=== PATIENT | male | born 1980 | race Caucasian/White ===

== ENCOUNTER → 2017-06-08 | Emergency (ER) | payer OTHER ==
[~2017-06-08] VITALS: Ht 172.7 cm; Wt 127.0 kg
== END | disposition home or self-care (01) ==
LOC: ER 18:33
DX: K52.9 Noninfective gastroenteritis and colitis, unspecified (principal)

== ENCOUNTER 2018-12-02 06:00 | Day surgery (SDC) | payer OTHER ==
[~2018-12-02 06:00] MED LIST: 5-HTP100 MG; BENADRYL25 MG; CBD; CLONAZEPAM0.5 MG; MELATONIN10 MG; ZEGERID 40 MG1 EACH; [UNRECOGNIZED DRUG - CODE]
[2018-12-02] MEDS ORDERED: PERCOCET 5-3251 EACH PO (08:57)
[2018-12-02] MEDS ORDERED: COLACE100 MG PO (08:57)
== END 2018-12-02 16:40 | disposition home or self-care (01) ==
LOC: CIR.AMB 06:00
DX: K60.3 Anal fistula (principal)

== ENCOUNTER 2018-12-08 14:00 | Emergency (ER) | payer OTHER ==
[~2018-12-08] VITALS: Ht 172.7 cm; Wt 109.3 kg
[~2018-12-08 14:00] MED LIST changes: +COLACE100 MG PO; +PERCOCET 5-3251 EACH PO
[2018-12-08] MEDS ORDERED: CLONAZEPAM0.5 MG (14:09)
== END 2018-12-09 08:10 | disposition home or self-care (01) ==
LOC: ER 14:00
DX: R60.0 Localized edema (principal)

== ENCOUNTER → 2018-12-12 | Outpatient (CLI) | payer OTHER | END | disposition home or self-care (01) | LOC: LAB 20:06 | DX: K61.2 Anorectal abscess (principal) ==

== ENCOUNTER → 2020-10-11 | Day surgery (SDC) | payer OTHER ==
[~2020-10-11] MED LIST changes: +GABAPENTIN100 M2 PO; +LEXAPRO5 MG PO; +TRAZODONE HCL150 MG PO
== END | disposition home or self-care (01) ==
LOC: ADM 10-09 09:15 → CIR.AMB 08:02
PROVIDERS: ATTEND Surgery
DX: K60.3 Anal fistula (principal); Z20.822 Contact with and (suspected) exposure to COVID-19

== ENCOUNTER 2020-12-20 07:26 | Emergency (ER) | payer OTHER ==
[~2020-12-20] VITALS: Ht 172.7 cm; Wt 121.6 kg
== END 2020-12-20 13:47 | disposition home or self-care (01) ==
LOC: ER 07:26
DX: K62.5 Hemorrhage of anus and rectum (principal); G89.18 Other acute postprocedural pain; Z11.52 Encounter for screening for COVID-19

== ENCOUNTER 2021-08-01 05:56 | Day surgery (SDC) | payer OTHER ==
[~2021-08-01] VITALS: Ht 172.7 cm; Wt 131.5 kg
[~2021-08-01 05:56] MED LIST changes: +BENADRYL25 MG PO; +CLARITIN10 M1 PO
[2021-08-01] MEDS ORDERED: COLACE100 MG PO (07:50)
[2021-08-01] MEDS ORDERED: PERCOCET 5-3251 EACH PO (07:50)
[2021-08-01] MEDS ORDERED: INTESTINEX680 M1 PO (08:29)
[2021-08-01] MEDS ORDERED: AMOX-CLAV 875-1 EACH PO (08:29)
== END 2021-08-01 12:20 | disposition home or self-care (01) ==
LOC: CIR.AMB 05:56
PROVIDERS: ATTEND Surgery
DX: K60.3 Anal fistula (principal); K62.89 Other specified diseases of anus and rectum; Z20.822 Contact with and (suspected) exposure to COVID-19; Z91.013 Allergy to seafood; J45.909 Unspecified asthma, uncomplicated; K21.9 Gastro-esophageal reflux disease without esophagitis

== ENCOUNTER 2021-09-19 06:14 | Day surgery (SDC) | payer OTHER ==
[~2021-09-19 06:14] MED LIST changes: +AMOX-CLAV 875-1 EACH PO; +CLONAZEPAM0.5 MG PO; +INTESTINEX680 M1 PO; +LEXAP PO; +ZEGERID 20 MG1 EAC1 PO
[2021-09-19] MEDS ORDERED: COLACE100 MG PO (10:09)
[2021-09-19] MEDS ORDERED: PERCOCET 5-3251 EACH PO (10:09)
== END 2021-09-19 15:21 | disposition home or self-care (01) ==
LOC: CIR.AMB 06:14
PROVIDERS: ATTEND Surgery
DX: K60.3 Anal fistula (principal); K62.89 Other specified diseases of anus and rectum; Z91.013 Allergy to seafood; Z20.822 Contact with and (suspected) exposure to COVID-19; J45.909 Unspecified asthma, uncomplicated; Z87.891 Personal history of nicotine dependence; E66.01 Morbid (severe) obesity due to excess calories